=== PATIENT | female | born 1985 | race Caucasian/White ===

== ENCOUNTER 2017-08-04 22:20 | Emergency (ER) | payer OTHER ==
[2017-08-04 23:03] LABS: #Basophils 0.1 thou/uL (0.0-0.2); #Eosinphils 0.3 thou/uL (0.0-0.7); #Lymphocytes 2.5 thou/uL (1.20-3.40); #Monocytes 0.5 thou/uL (0.11-0.59); #Neutrophils 5.2 thou/uL (1.40-6.50); %Basophils 0.8 % (0.0-1.0); %Eosinophils 3.2 % (0.0-10.0); %Lymphocytes 29.7 % (21.0-51.0); %Monocytes 5.8 % (0.0-10.0); Hematocrit 38.4 % (36.0-47.0); Mean Platelet Volume 7.3 fL (7.4-10.4); Red Blood Cell (RBC) Count 4.18 mill/uL (4.20-5.40); White Blood Cell (WBC) Count 8.5 thou/uL (4.8-10.8)
[2017-08-04 23:08] LABS: Bilirubin Negative (Negative); Blood, Urine Moderate (Negative); Glucose, Urine (Dipstick) Negative (Negative); Ketone, Urine Negative (Negative); Nitrite Negative (Negative); Protein, Urine (Dipstick) Negative (Neg-Trace); Urobilinogen 0.2 mg/dL (0.2-1.0)
[2017-08-04 23:10] LABS: Bacteria/HPF None Seen HPF (None Seen); Hyaline Casts/LPF 0-3 HYALINE CAST LPF (0-3 Hyaline); RBC/HPF 0-3 HPF (0-3); Squamous Epithelial None Seen HPF (0-3); WBC/HPF 0-3 HPF (0-3)
--- NOTE | 2017-08-05 08:10 | ULT ---
PRELIMINARY REPORT/[facility]/EMERGENCY AFTER HOURS PROCEDURE: EXAM: US , Transvaginal CLINICAL HISTORY: 31 years old, female; Signs and symptoms; Lmp or gestational age (in weeks): 5wks; Other: Llq pain, v ag spotting, HX of ectopic "years ago"; TECHNIQUE: Real-time transvaginal obstetrical ultrasound of the maternal pelvis and a first trimester with image documentation. Transvaginal imaging was used for better evaluation of the fetus and adnexa . COMPARISON: No relevant prior studies available. FINDINGS: There is a 5 mm fluid collection within the uterus that may represent a very early gestational sac. N o definite yolk sac visible to confirm that this is a true gestational sac. Size would suggest gestat ional age of between four and five weeks. Possible small anterior uterine fibroid, measuring 9 x 5 mm . No free pelvic fluid. Small cyst in the left ovary, measuring 23 x 15 x 20 mm, possibly corpus luteum. Maternal ovaries/adnexa otherwise appear essentially unremarkable. Blood flow to each ovary. The sonographic appearance alone is nonspecific. This may represent an early viable intrauterine , less than five weeks gestation. If there i s any further question of viability, follow up will be needed. An occult ectopic with a pseudo sac in the uterus is not yet completely excluded. Appropriate clinical follow up is needed. The urinary bladder was not completely evaluated/imaged at this time. IMPRESSION: Possible very early gestational sac within the uterus. See above discussion and recommendations. Small cyst in the left ovary, see above. Other details discussed above. Thank you for allowing us to participate in the care of your patient. Dictated and Authenticated by: Cade Worthington MD 08/05/2017 1:44 AM Central Time ([place] & [place]) FINAL REPORT PELVIC ULTRASOUND: Date: 08/05/17 HISTORY: 31-year-old female with history of left lower quadrant pain, vaginal spotting. TECHNIQUE: Multiple longitudinal and transverse images of the pelvis obtained using a multihertz endovaginal tra nsducer. Real-time, color flow, and spectral waveform Doppler analysis performed. FINDINGS: There is an area of hypoechogenicity in the uterine canal most compatible with a gestational sac. Thi s has overall gestational age of 5 weeks and 2 days, with a mean diameter of 5.0 mm. Estimated date o f delivery of 04/05/18. Cardiac activity definitively is not seen. Both ovaries visualized. Right ovary measures 3.8 x 1.7 x 3.0 cm. Left ovary measures 3.4 x 2.4 x 3.3 cm. There is a left ovarian cyst measuring 2.0 x 1.5 x 2.3 cm. I am in agreement with the preliminary report issued by [facility]. Good flow is seen in both ovaries witho ut evidence of ovarian torsion. POS: [id number]
== END 2017-08-05 02:50 | disposition home or self-care (01) ==
LOC: ERS 22:20
DX: O20.0 Threatened abortion (principal); Z3A.01 Less than 8 weeks gestation of pregnancy
CPT/HCPCS: 36415; 76856; 81003; 81015; 84702; 85025; 86850; 86900; 86901; 87480; 87491; 87510; 87591; 87660